=== PATIENT | male | born 1960 | race Caucasian/White ===

== ENCOUNTER 2018-01-07 13:15 | Emergency (ER) | payer OTHER ==
[~2018-01-07] VITALS: Ht 180.3 cm; Wt 64.9 kg
[~2018-01-07 13:15] MED LIST: NAPR500 PO
[2018-01-07 13:18] VITALS: BP 132/83; PULSE 89; RESP 16; TEMP 98.7; O2SAT 97
--- NOTE | 2018-01-07 14:16 | RADRPT ---
EXAM DATE/TIME: 01/07/2018 13:37 [place] COMPARISON: No previous studies available for comparison. INDICATIONS : Right foot 1st and 2nd digit pain and bruising, tripped over cinder block this morning. MEDICAL HISTORY : None. SURGICAL HISTORY : None. ENCOUNTER: Initial ACUITY: 1 day PAIN SCORE: 10/10 LOCATION: Right foot 1st and 2nd digit FINDINGS: Subtle nondisplaced fracture of the distal first phalanx. Remaining osseous structures appear intact. Joint spaces are maintained. No significant soft tissue abnormality. CONCLUSION: 1. Nondisplaced fracture of the distal first phalanx. Hong Robert MD on January 07, 2018 at 14:13 Board Certified Radiologist. This report was verified electronically.
[2018-01-07] MEDS ORDERED: NORC5TAB PO (14:27)
--- NOTE | 2018-01-07 14:28 | PD ---
HPI Chief Complaint: Injury Time Seen by Provider: 13:21 Travel History International Travel<30 days: No Contact w/Intl Traveler<30days: No Traveled to known affect area: No History of Present Illness HPI 57-year-old male with right great toe pain after he stubbed the toe on a cinder block yesterday evening. He denies head injury or loss of consciousness. He did not fall to the ground. Symptom severity is moderate. He has pain with weightbearing and range of motion of the toe. Denies paresthesia or weakness of the digit. Symptom severity is moderate. PFSH Past Medical History Anxiety: Yes Heart Rhythm Problems: No Cardiac Catheterization: No Cardiovascular Problems: No High Cholesterol: No Congestive Heart Failure: No Diabetes: No Diminished Hearing: No Immunizations Current: No Tetanus Vaccination: < 5 Years Influenza Vaccination: Yes Past Surgical History Surgical History: No Previous Surgery Coronary Artery Bypass Graft: No Family History Family Myocardial Infarction: Yes Social History Alcohol Use: No Tobacco Use: Yes (1 PPD) Substance Use: No Allergies-Medications (Allergen,Severity, Reaction): Coded Allergies: codeine (Unverified Allergy, Mild, ITCH, 01/07/18) penicillin G (Unverified Allergy, Mild, DIZZY, 01/07/18) Reported Meds & Prescriptions Reported Meds & Active Scripts Active No Active Prescriptions or Reported Medications Review of Systems Except as stated in HPI: all other systems reviewed are Neg General / Constitutional: No: Fever Eyes: No: Visual changes HENT: No: Headaches Cardiovascular: No: Chest Pain or Discomfort Respiratory: No: Shortness of Breath Gastrointestinal: No: Abdominal Pain Physical Exam Narrative GENERAL: Alert and well-appearing 57-year-old male SKIN: Warm and dry. HEAD: Normocephalic. Atraumatic EYES: No injection or drainage. NECK: Supple, trachea midline. No cervical midline tenderness. CARDIOVASCULAR: Regular rate and rhythm without murmurs, gallops, or rubs. RESPIRATORY: Breath sounds equal bilaterally. No accessory muscle use. GASTROINTESTINAL: Abdomen soft, non-tender, nondistended. MUSCULOSKELETAL: No cyanosis, or edema. RUE: + Tenderness and ecchymosis to the right great toe. No obvious deformity. Pain with full flexion and extension. No toenail injury. Normal sensation. Brisk cap refill. Palpable DP pulse BACK: Nontender without obvious deformity. No CVA tenderness. Data Data Last Documented VS Vital Signs Date Time Temp Pulse Resp B/P (MAP) Pulse Ox O2 Delivery O2 Flow Rate FiO2 01/07/18 13:18 98.7 89 16 132/83 (99) 97 Orders Orders Ice/Cold Pack (01/07/18 13:26) Foot, Complete ([id number]) (01/07/18 13:44) Post Op Boot (Shoe) (01/07/18 ) Crutches (01/07/18 14:19) Acetamin-Hydrocod 325-5 Mg ([place] 5-325 (01/07/18 14:30) MDM Medical Decision Making Medical Screen Exam Complete: Yes Emergency Medical Condition: Yes Differential Diagnosis Toe fracture, toe sprain, contusion Narrative Course 57-year-old male with toe pain. The digit is neurovascularly intact. X-ray shows a nondisplaced fracture of the first distal phalanx. Postop shoe provided. Crutches provided. Prescription for [place]. He is to follow-up with podiatry. Diagnosis Primary Impression: Toe fracture Qualified Codes: S92.424A - Nondisplaced fracture of distal phalanx of right great toe, initial encounter for closed fracture Referrals: Porter Wilson DPMaranda Hernandez DPM Assistant Housekeeping Manager Additional Instructions: Ice and elevate the extremity. Postop she was directed. Follow-up with podiatry. Scripts Hydrocodone-Acetaminophen ([place]) 5 Mg-325 Mg Tab 1 TAB PO Q6H Y for PAIN, #12 TAB 0 Refills Prov: Robyn Gipson 01/07/18 Disposition: 01 DISCHARGE HOME Condition: Stable Robyn Gipson January 07, 2018 14:28
[2018-01-07] MEDS ORDERED: ACETAMINOPHEN/HYDROcodone 325 MG/5 MG TAB PO ONE (14:30)
== END 2018-01-07 15:12 | disposition home or self-care (01) ==
LOC: PHEFT 13:15
DX: S92.424A Nondisplaced fracture of distal phalanx of right great toe, initial encounter for closed fracture (principal); W22.8XXA Striking against or struck by other objects, initial encounter; F41.9 Anxiety disorder, unspecified; F17.200 Nicotine dependence, unspecified, uncomplicated
CPT/HCPCS: 73630; 99283